=== PATIENT | female | born 1950 | race Caucasian/White ===

== ENCOUNTER → 2018-02-13 10:54 | Outpatient (CLI) | payer OTHER, SELFPAY ==
[2018-02-13 12:46] LABS: HCT 44.7 % (36.0-46.0); HGB 14.6 g/dL (12.0-15.5); Mean Corp. HGB Concentration 32.7 g/dL (32.0-36.0); Mean Corpuscular Hemoglobin 26.6 pg (27.0-33.0); Mean Corpuscular Volume 81.6 fL (80-95); Mean Platelet Volume 10.8 fL (8.0-11.0); Platelet Count 370 x1000/uL (130-400); RBC 5.48 m/cumm (4.00-5.20); RBC Distribution Width 15.4 % (11.7-14.6); White Blood Cell Count 14.87 k/cumm (4.4-10.8)
[2018-02-13 13:07] LABS: ALT 31 U/L (12-78); AST 27 U/L (15-37); Albumin 3.7 g/dL (3.4-5.0); Alkaline Phosphatase 115 U/L (46-116); Anion Gap 12.3 mmol/L (3-11); BUN 24 mg/dL (7-18); Bilirubin, Total 0.3 mg/dL (0.2-1.0); C-Reactive Protein 0.18 mg/dL (0.0-0.3); CO2 28.7 mmol/L (21.0-32.0); CREATININE 1.25 mg/dL (0.55-1.02); Calcium 9.6 mg/dL (8.5-10.1); Chloride 100 mmol/L (98-107); Estimated GFR 42.62 (mL/min/1.73m2); Glucose 194 mg/dL (70-100); Sodium 141 mmol/L (136-145); TSH (W/Ref FT4) 0.01 uIU/mL (0.358-3.74)
[2018-02-13 13:15] LABS: Potassium 2.7 mmol/L (3.5-5.1)
[2018-02-13 13:31] LABS: FREE T4 2.52 ng/dL (0.76-1.46)
[2018-02-13 13:45] LABS: ESR 18 MM/HR (0-30)
[2018-02-13 14:14] LABS: Hemoglobin A1C 6.1 % (4.5-6.2)
== END ==
PROVIDERS: PCP Family Medicine; Visit Provider Family Medicine
DX: D64.9 Anemia, unspecified (principal); R63.4 Abnormal weight loss; R25.1 Tremor, unspecified; E09.00 Drug or chemical induced diabetes mellitus with hyperosmolarity without nonketotic hyperglycemic-hyperosmolar coma (NKHHC); Z79.4 Long term (current) use of insulin; R79.89 Other specified abnormal findings of blood chemistry
CPT/HCPCS: 36415; 80053; 85027; 85652; 83036; 84439; 84443; 86140

== ENCOUNTER 2018-03-14 12:27 | Outpatient (CLI) | payer OTHER, SELFPAY ==
[2018-03-14 14:03] LABS: Potassium 3.9 mmol/L (3.5-5.1); TSH (W/Ref FT4) 0.01 uIU/mL (0.358-3.74)
[2018-03-14 14:30] LABS: FREE T4 0.68 ng/dL (0.76-1.46)
== END 2018-03-14 12:47 ==
PROVIDERS: PCP Family Medicine; Visit Provider Family Medicine
DX: E87.6 Hypokalemia (principal); E05.90 Thyrotoxicosis, unspecified without thyrotoxic crisis or storm; R35.0 Frequency of micturition
CPT/HCPCS: 36415; 87077; 84132; 84439; 84443; 87086; 87186

== ENCOUNTER 2018-03-16 00:15 | Outpatient (CLI) | payer OTHER, SELFPAY ==
--- NOTE | 2018-03-16 10:40 | MERGE_ITS ---
*[facility]* *[facility]* [address] [place] [address] Date of study: 03/16/2018 Transthoracic Echocardiography M-mode, complete 2D, complete spectral Doppler, and color Doppler *STUDY CONCLUSIONS* Summary: 1. Left ventricle: The cavity size was normal. Wall thickness was normal. Systolic function was normal. The estimated ejection fraction was 60-65%. Wall motion was normal; there were no regional wall motion abnormalities. 2. Mitral valve: Mildly calcified annulus. There was mild regurgitation. 3. Left atrium: The atrium was mildly dilated. 4. Right ventricle: The cavity size was normal. Wall thickness was normal. Systolic function was normal. *PATIENT PRESENTATION* Height: 157.5cm ((62in) ) S/D Pressure: 124 / 64 Weight: 63.5kg ((139.7lb) ) BSA: 1.68m^2 Test start time: 10:45 AM. Test stop time: 11:40 AM. PERFORMING Unknown ORDERING Salo Eldridge REFERRING Salo Eldridge PERFORMING [facility] OPEN CUT EXAMINER RT Ritika (Daina)(NORMA), MORAIMA *PROCEDURE DATA* Procedure information: This study was interpreted by [facility]. Pertinent images and digital data are archived for permanent storage and are available for subsequent review. No prior study was available for comparison. Study status: Routine. Transthoracic echocardiography. M-mode, complete 2D, complete spectral Doppler, and color Doppler. A Transthoracic Echocardiogram was performed. Scanning was performed from the parasternal, apical, subcostal, and suprasternal notch acoustic windows. Images were obtained using an [id number] cardiac ultrasound machine. Image quality was adequate. Study completion: The patient tolerated the procedure well. There were no complications. *CARDIAC ANATOMY* Left ventricle: The cavity size was normal. Wall thickness was normal. Systolic function was normal. The estimated ejection fraction was 60-65%. Wall motion was normal; there were no regional wall motion abnormalities. Diastolic parameters were normal for age. Aortic valve: Trileaflet; normal thickness leaflets. Mobility was not restricted. Doppler: Transvalvular velocity was within the normal range. There was no stenosis. There was no significant regurgitation. VTI ratio of LVOT to aortic valve: 0.65. Valve area (VTI): 1.9cm^2. Indexed valve area (VTI): 1.2cm^2/m^2. Peak velocity ratio of LVOT to aortic valve: 0.57. Valve area (Vmax): 1.7cm^2. Indexed valve area (Vmax): 1cm^2/m^2. Mean velocity ratio of LVOT to aortic valve: 0.66. Valve area (Vmean): 2cm^2. Indexed valve area (Vmean): 1.2cm^2/m^2. Mean gradient (S): 6.3mm Hg. Peak gradient (S): 14.5mm Hg. Aorta: Aortic root: The aortic root was normal in size. Ascending aorta: The ascending aorta was normal in size. Mitral valve: Mildly calcified annulus. Mobility was not restricted. Doppler: Transvalvular velocity was within the normal range. There was no evidence for stenosis. There was mild regurgitation. Valve area by pressure half-time: 2.7cm^2. Indexed valve area by pressure half-time: 1.6cm^2/m^2. Peak gradient (D): 2mm Hg. Left atrium: The atrium was mildly dilated. Right ventricle: The cavity size was normal. Wall thickness was normal. Systolic function was normal. Pulmonic valve: Structurally normal valve. Doppler: Transvalvular velocity was within the normal range. There was no evidence for stenosis. There was no significant regurgitation. Peak gradient (S): 5.1mm Hg. Tricuspid valve: Structurally normal valve. Doppler: Transvalvular velocity was within the normal range. There was no evidence for stenosis. There was trivial regurgitation. Pulmonary artery: Pulmonary systolic pressure was within the normal range, in the range of 25mm Hg to 30mm Hg. Right atrium: The atrium was normal in size. Pericardium: There was no pericardial effusion. Systemic veins: Inferior vena cava: Well visualized. The vessel was patent and normal in size. The respirophasic diameter changes were in the normal range (greater than or equal to 50%). Baseline ECG: Normal sinus rhythm. Measurements Left ventricle Value Reference LV ID, ED, PLAX 3.8 cm 3.5 - 6.0 LV ID, ES, PLAX 2.8 cm 2.1 - 4.0 LV PW thickness, ED, PLAX 0.8 cm LV end-diastolic volume, 1-p A2C 50 ml LV ejection fraction, 1-p A2C 57 % LV end-diastolic volume, 1-p A4C 52 ml LV ejection fraction, 1-p A4C 63 % LV e', lateral 0.12 m/sec LV E/e', lateral 6 LV e', medial 0.071 m/sec LV E/e', medial 10 LV e', average 0.095 m/sec LV E/e', average 7 Ventricular septum Value Reference IVS thickness, ED, PLAX 0.8 cm LVOT Value Reference LVOT ID, A-P 2.0 cm LVOT area 3 cm^2 LVOT peak velocity, S 1.09 m/sec LVOT mean velocity, S 0.75 m/sec LVOT VTI, S 24.7 cm LVOT peak gradient, S 4.7 mm Hg LVOT mean gradient, S 2.6 mm Hg Stroke volume (SV), LVOT DP 74 ml Stroke index (SV/bsa), LVOT DP 44 ml/m^2 Aortic valve Value Reference Aortic valve peak velocity, S 1.9 m/sec Aortic valve mean velocity, S 1.14 m/sec Aortic valve VTI, S 38.3 cm Aortic mean gradient, S 6.3 mm Hg Aortic peak gradient, S 14.5 mm Hg VTI ratio, LVOT/AV 0.65 Aortic valve area, VTI 1.9 cm^2 Velocity ratio, peak, LVOT/AV 0.57 Aortic valve area, peak velocity 1.7 cm^2 Velocity ratio, mean, LVOT/AV 0.66 Aortic valve area, mean velocity 2 cm^2 Aortic valve area/bsa, mean velocity 1.2 cm^2/m^2 Aorta Value Reference Aortic root ID, ED 2.6 cm Ascending aorta ID, A-P, S 3.0 cm RVOT Value Reference RVOT VTI, S 20.0 cm Left atrium Value Reference LA ID, A-P, ES 3.6 cm LA ID/bsa, A-P 2.1 cm/m^2 <=2.2 LA area, ES, A4C 20.1 cm^2 8.8 - 23.4 LA area, ES, A2C 19 cm^2 LA volume/bsa, ES, 1-p A4C 35 ml/m^2 LA volume, ES, 2-p 51 ml LA volume/bsa, ES, 2-p 31 ml/m^2 LA/aortic root ratio 1.37 Mitral valve Value Reference Mitral E-wave peak velocity 0.71 m/sec Mitral A-wave peak velocity 1.11 m/sec Mitral deceleration time (H) 281 ms 150 - 230 Mitral pressure half-time 82 ms Mitral peak gradient, D 2 mm Hg Mitral E/A ratio, peak 0.64 Mitral valve area, PHT, DP 2.7 cm^2 Pulmonary veins Value Reference Pulmonary vein peak velocity, S 0.78 m/sec Pulmonary vein peak velocity, D 0.48 m/sec Pulmonary vein velocity ratio, peak, 1.62 S/D Pulmonary vein A-wave reversal peak 0.99 m/sec velocity Pulmonary vein A-wave reversal 166 ms duration Tricuspid valve Value Reference Tricuspid regurg peak velocity 2.4 m/sec Tricuspid peak RV-RA gradient 23.6 mm Hg Right atrium Value Reference RA area, ES, A4C 12.8 cm^2 8.3 - 19.5 Pulmonic valve Value Reference Pulmonic peak gradient, S 5.1 mm Hg Legend: (L) and (H) sonia values outside specified reference range. I have personally reviewed the images and have reviewed and edited the reported findings. Electronically signed by Ravi Caballero 03/16/2018 13:04
== END 2018-03-16 00:35 ==
PROVIDERS: PCP Family Medicine; Visit Provider Family Medicine
DX: I82.811 Embolism and thrombosis of superficial veins of right lower extremity (principal); R25.1 Tremor, unspecified; R63.4 Abnormal weight loss; I34.0 Nonrheumatic mitral (valve) insufficiency; I10 Essential (primary) hypertension
CPT/HCPCS: 93306

== ENCOUNTER 2018-06-13 09:08 | Outpatient (CLI) | payer OTHER, SELFPAY ==
[2018-06-13 11:36] LABS: TSH (W/Ref FT4) 0.05 uIU/mL (0.358-3.74)
[2018-06-13 12:10] LABS: FREE T4 0.88 ng/dL (0.76-1.46)
== END 2018-06-13 09:28 ==
PROVIDERS: PCP Family Medicine; Visit Provider Family Medicine
DX: E03.9 Hypothyroidism, unspecified (principal)
CPT/HCPCS: 36415; 84439; 84443

== ENCOUNTER 2018-09-11 11:26 | Outpatient (CLI) | payer OTHER, SELFPAY ==
[2018-09-11 13:20] LABS: TSH (W/Ref FT4) 2.54 uIU/mL (0.358-3.74)
== END 2018-09-11 11:46 ==
PROVIDERS: PCP Family Medicine; Visit Provider Family Medicine
DX: E07.9 Disorder of thyroid, unspecified (principal)
CPT/HCPCS: 36415; 84443

== ENCOUNTER 2018-11-07 01:24 | Outpatient (CLI) | payer OTHER, SELFPAY ==
[2018-11-07 08:49] LABS: FREE T4 0.65 ng/dL (0.76-1.46); TSH 2.38 uIU/mL (0.358-3.74)
== END 2018-11-07 01:44 ==
PROVIDERS: PCP Family Medicine; Visit Provider Internal Medicine
DX: E05.90 Thyrotoxicosis, unspecified without thyrotoxic crisis or storm (principal)
CPT/HCPCS: 36415; 84439; 84443

== ENCOUNTER 2019-05-10 01:44 | Outpatient (CLI) | payer OTHER, SELFPAY ==
[2019-05-15 00:23] LABS: 25-Hydroxy D Total 42 ng/mL; 25-Hydroxy D2 <4.0 ng/mL; 25-Hydroxy D3 42 ng/mL
== END 2019-05-10 02:04 ==
PROVIDERS: PCP Family Medicine; Visit Provider Internal Medicine
DX: E55.9 Vitamin D deficiency, unspecified (principal)
CPT/HCPCS: 36415; 82306

== ENCOUNTER 2020-01-23 01:38 | Outpatient (CLI) | payer OTHER, SELFPAY ==
[2020-01-23 13:09] LABS: Anion Gap 19.5 mmol/L (3-11); BUN 48 mg/dL (7-18); CO2 21.5 mmol/L (21.0-32.0); CREATININE 1.88 mg/dL (0.55-1.02); Calcium 9.3 mg/dL (8.5-10.1); Calculated LDL 88 mg/dL (<100); Chloride 100 mmol/L (98-107); Cholesterol 185 mg/dL (<200); Estimated GFR 26.46 (mL/min/1.73m2); Glucose 146 mg/dL (74-106); HDL Cholesterol 47 mg/dL (40-60); Sodium 141 mmol/L (136-145); Triglyceride 251 mg/dL (<150)
[2020-01-23 13:19] LABS: FREE T4 0.98 ng/dL (0.76-1.46); TSH 1.58 uIU/mL (0.36-3.74)
[2020-01-23 13:20] LABS: Potassium 2.4 mmol/L (3.5-5.1)
== END 2020-01-23 01:58 ==
PROVIDERS: PCP Family Medicine; Visit Provider Internal Medicine
DX: I10 Essential (primary) hypertension (principal); E78.5 Hyperlipidemia, unspecified; E05.90 Thyrotoxicosis, unspecified without thyrotoxic crisis or storm
CPT/HCPCS: 36415; 80048; 80061; 84439; 84443

== ENCOUNTER 2020-01-30 02:52 | Outpatient (CLI) | payer OTHER, SELFPAY ==
[2020-01-30 12:32] LABS: Anion Gap 14.5 mmol/L (3-11); BUN 31 mg/dL (7-18); CO2 25.5 mmol/L (21.0-32.0); CREATININE 1.38 mg/dL (0.55-1.02); Calcium 8.8 mg/dL (8.5-10.1); Chloride 102 mmol/L (98-107); Glucose 129 mg/dL (74-106); Sodium 142 mmol/L (136-145)
[2020-01-30 13:10] LABS: Potassium 2.7 mmol/L (3.5-5.1)
== END 2020-01-30 03:12 ==
PROVIDERS: PCP Family Medicine; Visit Provider Family Medicine
DX: Z79.01 Long term (current) use of anticoagulants (principal)
CPT/HCPCS: 36415; 80048

== ENCOUNTER 2020-02-04 01:32 | Outpatient (CLI) | payer OTHER, SELFPAY ==
[2020-02-04 12:03] LABS: Anion Gap 8.7 mmol/L (3-11); BUN 27 mg/dL (7-18); CO2 23.3 mmol/L (21.0-32.0); CREATININE 1.07 mg/dL (0.55-1.02); Calcium 9.3 mg/dL (8.5-10.1); Chloride 111 mmol/L (98-107); Glucose 135 mg/dL (74-106); Potassium 4.3 mmol/L (3.5-5.1); Sodium 143 mmol/L (136-145)
== END 2020-02-04 01:52 ==
PROVIDERS: PCP Family Medicine; Visit Provider Nurse Practitioner
DX: E87.6 Hypokalemia (principal)
CPT/HCPCS: 36415; 80048

== ENCOUNTER 2020-02-14 04:39 | Outpatient (CLI) | payer OTHER, SELFPAY ==
[2020-02-14 12:28] LABS: Potassium 4.1 mmol/L (3.5-5.1)
== END 2020-02-14 04:59 ==
PROVIDERS: PCP Family Medicine; Visit Provider Family Medicine
DX: I10 Essential (primary) hypertension (principal)
CPT/HCPCS: 36415; 84132

== ENCOUNTER 2020-03-18 13:36 | Outpatient (REF) | payer OTHER, SELFPAY ==
[2020-03-18 22:26] LABS: CREATININE 1.27 mg/dL (0.55-1.02); Potassium 4.2 mmol/L (3.5-5.1); TSH (W/Ref FT4) 4.49 uIU/mL (0.36-3.74)
[2020-03-18 22:43] LABS: FREE T4 0.65 ng/dL (0.76-1.46)
== END 2020-03-18 13:56 ==
LOC: LBN 13:36
PROVIDERS: PCP Family Medicine; Visit Provider Family Medicine
DX: E03.9 Hypothyroidism, unspecified (principal); I10 Essential (primary) hypertension
CPT/HCPCS: 82565; 84132; 84439; 84443

== ENCOUNTER 2020-07-28 04:05 | Outpatient (CLI) | payer OTHER, SELFPAY ==
[2020-07-28 13:16] LABS: FREE T4 1.48 ng/dL (0.76-1.46)
[2020-07-28 13:52] LABS: TSH (W/Ref FT4) < 0.01 uIU/mL (0.36-3.74)
[2020-07-31 15:57] LABS: Thyroid Stimulating Immunoglob 4.1 TSI index (<=1.3)
== END 2020-07-28 04:25 ==
PROVIDERS: PCP Family Medicine; Visit Provider Internal Medicine
DX: E03.9 Hypothyroidism, unspecified (principal)
CPT/HCPCS: 36415; 84439; 84443; 84445

== ENCOUNTER 2020-09-15 13:31 | Outpatient (REF) | payer OTHER, SELFPAY ==
[2020-09-15 15:02] LABS: Bacteria Many HPF (Negative); C & S Indicated? No/Sq. Contamination; Epithelial Cells Many HPF (Negative); Mucus Moderate (Negative); WBC >50 HPF (0-5)
[2020-09-15 21:31] LABS: ALT 37 U/L (14-59); AST 18 U/L (15-37); Albumin 3.9 g/dL (3.4-5.0); Alkaline Phosphatase 108 U/L (46-116); BUN 24 mg/dL (7-18); Bilirubin, Total 0.3 mg/dL (0.2-1.0); CREATININE 1.4 mg/dL (0.55-1.02); Calcium 9.7 mg/dL (8.5-10.1); Chloride 105 mmol/L (98-107); Estimated GFR 37.07 (mL/min/1.73m2); Glucose 152 mg/dL (74-106); Potassium 4.8 mmol/L (3.5-5.1); Sodium 141 mmol/L (136-145); Total Protein 7.1 g/dL (6.4-8.2)
[2020-09-15 22:08] LABS: TSH (W/Ref FT4) < 0.01 uIU/mL (0.36-3.74)
[2020-09-15 22:24] LABS: FREE T4 1.37 ng/dL (0.76-1.46)
== END 2020-09-15 13:32 | disposition home or self-care (01) ==
LOC: LBN 13:31
PROVIDERS: PCP Family Medicine; Visit Provider Family Medicine
DX: E03.9 Hypothyroidism, unspecified (principal); R10.9 Unspecified abdominal pain; R35.0 Frequency of micturition
CPT/HCPCS: 80053; 81015; 84439; 84443

== ENCOUNTER 2020-11-12 02:15 | Outpatient (CLI) | payer OTHER, SELFPAY ==
[2020-11-12 12:36] LABS: CREATININE 1.3 mg/dL (0.55-1.02); Calcium 9.3 mg/dL (8.5-10.1); Estimated GFR 40.38 (mL/min/1.73m2); FREE T4 0.93 ng/dL (0.76-1.46)
[2020-11-12 12:39] LABS: TSH < 0.01 uIU/mL (0.36-3.74)
[2020-11-12 12:50] LABS: Vitamin D 25 Total 38.7 ng/mL (30-100)
[2020-11-12 16:56] LABS: T3, Total 177 ng/dL (97-169)
== END 2020-11-12 02:16 | disposition home or self-care (01) ==
LOC: LBO 02:15
PROVIDERS: PCP Family Medicine; Visit Provider Internal Medicine
DX: M81.0 Age-related osteoporosis without current pathological fracture (principal); E05.90 Thyrotoxicosis, unspecified without thyrotoxic crisis or storm; E55.9 Vitamin D deficiency, unspecified
CPT/HCPCS: 36415; 82306; 82310; 82565; 84439; 84443; 84480

== ENCOUNTER 2021-03-17 03:14 | Outpatient (CLI) | payer OTHER, SELFPAY ==
[2021-03-17 12:15] LABS: FREE T4 0.57 ng/dL (0.76-1.46); TSH 4.17 uIU/mL (0.36-3.74)
[2021-03-17 16:56] LABS: T3, Total 122 ng/dL (97-169)
== END 2021-03-17 03:15 | disposition home or self-care (01) ==
LOC: LBO 03:14
PROVIDERS: PCP Family Medicine; Visit Provider Internal Medicine
DX: E05.90 Thyrotoxicosis, unspecified without thyrotoxic crisis or storm (principal)
CPT/HCPCS: 36415; 84439; 84443; 84480

== ENCOUNTER 2021-05-05 09:42 | Outpatient (CLI) | payer OTHER, SELFPAY ==
[2021-05-05 12:55] LABS: Calculated LDL 66 mg/dL (<100); Cholesterol 151 mg/dL (<200); HDL Cholesterol 48 mg/dL (40-60); Triglyceride 188 mg/dL (<150)
[2021-05-05 12:56] LABS: TSH (W/Ref FT4) < 0.01 uIU/mL (0.36-3.74)
[2021-05-05 13:20] LABS: FREE T4 1.32 ng/dL (0.76-1.46)
== END 2021-05-05 09:43 | disposition home or self-care (01) ==
LOC: LOS 09:43
PROVIDERS: PCP Family Medicine; Referring Provider Family Medicine; Visit Provider Family Medicine
DX: E78.5 Hyperlipidemia, unspecified (principal); E03.9 Hypothyroidism, unspecified
CPT/HCPCS: 36415; 80061; 84439; 84443

== ENCOUNTER 2021-07-20 19:59 | Outpatient (REF) | payer MEDICARE, SELFPAY ==
[2021-07-20 17:06] LABS: Bilirubin Negative (Negative); Blood Negative (Negative); Clarity Clear (Clear); Glucose Negative (Negative); Ketones Negative (Negative); Leukocyte Esterase Negative (Negative); Nitrite Negative (Negative); Urobilinogen 0.2 EU/dL (Up TO 0.2)
== END 2021-07-20 20:00 | disposition home or self-care (01) ==
LOC: LBN 19:59
PROVIDERS: PCP Family Medicine; Visit Provider Psychiatry & Neurology Neurology
DX: N39.0 Urinary tract infection, site not specified (principal)
CPT/HCPCS: 81003

== ENCOUNTER 2021-08-26 02:41 | Outpatient (CLI) | payer MEDICARE, SELFPAY ==
[2021-08-26 13:29] LABS: FREE T4 0.97 ng/dL (0.76-1.46); TSH 0.01 uIU/mL (0.36-3.74)
[2021-08-26 22:28] LABS: T3, Total 152 ng/dL (97-169)
[2021-09-03 13:33] LABS: Thyroid Stimulating Immunoglob 4.9 TSI index (<=1.3)
== END 2021-08-26 02:42 | disposition home or self-care (01) ==
LOC: LBO 02:41
PROVIDERS: PCP Family Medicine; Visit Provider Internal Medicine
DX: E05.90 Thyrotoxicosis, unspecified without thyrotoxic crisis or storm (principal)
CPT/HCPCS: 36415; 84439; 84443; 84445; 84480